=== PATIENT | male | born 1945 | race Caucasian/White ===

== ENCOUNTER 2016-12-28 18:27 | Inpatient (IN) | payer OTHER, BC ==
[~2016-12-28] VITALS: Ht 170.2 cm; Wt 86.3 kg
[~2016-12-28 18:27] MED LIST: ASPIR 8181 M1 PO; METFORMIN HCL1000 M1; NIFEDIPINE ER30 MG PO; PIOGLITAZONE HC45 MG; ZESTRIL20 MG PO
[2016-12-28 18:58] LABS: HEMATOCRIT 41.1 % (38.0-50.0); MCH 29.5 PG (29.0-34.0); MCHC 34.3 G/DL (30.0-36.0); MEAN PLAT.VOLUME 11.5 uM^3 (9.0-12.4); PLATELET COUNT 213 K/uL (156-360); RBC DIS.WIDTH-CV 11.3 % (11.8-14.6); RBC DIS.WIDTH-SD 35.7 % (39-53); RED BLOOD COUNT 4.78 M/uL (4.00-5.50); WHITE BLOOD COUNT 10.5 K/uL (4.1-10.2)
[2016-12-28 19:12] LABS: CHLORIDE 109 mEq/L (99-109); POTASSIUM 4.6 mEq/L (3.7-5.4); SODIUM 139 mEq/L (136-147)
[2016-12-28 19:14] LABS: GLUCOSE 128 mg/dL (70-99)
[2016-12-28 19:15] LABS: ANION GAP 13 MEQ/L (2-14)
[2016-12-28 19:18] LABS: GFR ESTIMATE (CALCULATED) 58 mL/min/
[2016-12-28 19:19] LABS: UREA NITROGEN (BUN) 19 mg/dL (9-23)
[2016-12-28 22:22] LABS: ADD MIUA? YES; BILIRUBIN NEGATIVE; BLOOD NEGATIVE; COLOR YELLOW ((YELLOW)); GLUCOSE (STRIP) 50; KETONES 20; LEUKOCYTES NEGATIVE; NITRITE NEGATIVE; PROTEIN (STRIP) 100; UROBILINOGEN 0.2 MG/DL (0.2-1.0)
[2016-12-28 22:32] LABS: BACTERIA NONE SEEN /HPF; EPITHELIAL CELLS NONE SEEN /HPF; MUCUS TRACE /LPF; RED BLOOD CELLS 0-5 /HPF (0-5); WHITE BLOOD CELLS 0-5 /HPF (0-5)
[2016-12-29 00:48] VITALS: BP 172/81
[2016-12-29 01:30] LABS: POINT-OF-CARE METER ID UU14174225
[2016-12-29 03:35] VITALS: BP 154/80
[2016-12-29 06:16] LABS: HEMATOCRIT 36.3 % (38.0-50.0); MCH 30.9 PG (29.0-34.0); MCHC 35.3 G/DL (30.0-36.0); MCV 87.7 FL (86-99); MEAN PLAT.VOLUME 12.2 uM^3 (9.0-12.4); PLATELET COUNT 175 K/uL (156-360); RBC DIS.WIDTH-CV 11.5 % (11.8-14.6); RBC DIS.WIDTH-SD 36.9 % (39-53); RED BLOOD COUNT 4.14 M/uL (4.00-5.50); WHITE BLOOD COUNT 5.4 K/uL (4.1-10.2)
[2016-12-29 06:45] LABS: ALKALINE PHOSPHATASE 87 IU/L (3-129); ANION GAP 8 MEQ/L (2-14); CHLORIDE 109 MEQ/L (99-109); GFR ESTIMATE (CALCULATED) 58 mL/min/; POTASSIUM 4.4 MEQ/L (3.7-5.4); SAMPLE HEMOLYSIS CHECK 0; SAMPLE ICTERIC CHECK 0; SAMPLE LIPEMIA CHECK 0; SODIUM 139 MEQ/L (136-147); TOTAL BILIRUBIN 0.5 MG/DL (0.0-1.0); UREA NITROGEN (BUN) 20 mg/dL (9-23)
[2016-12-29 06:47] LABS: GLUCOSE 200 mg/dL (70-99)
[2016-12-29 06:49] LABS: HDL CHOLESTEROL 28 MG/DL (Desirable>=40); LDL CHOLESTEROL 103 mg/dL (Desirable<100); NON-HDL CHOLESTEROL 138 mg/dL (Desirable<160); TOTAL CHOLESTEROL 166 mg/dL (Desirable<200); TRIGLYCERIDES 177 MG/DL (Normal: <150)
[2016-12-29 07:03] LABS: Estimated Average Glucose 217 mg/dL (70-123); HEMOGLOBIN A1c (GLYCOHEMOGLOB) 9.2 % HGB (Below 5.7)
[2016-12-29 08:06] VITALS: BP 132/74
[2016-12-29 11:30] VITALS: BP 171/95
[2016-12-29 15:44] VITALS: BP 148/82
[2016-12-29 17:36] LABS: POINT-OF-CARE METER ID UU14174225
[2016-12-29] MEDS ORDERED: METFORMIN HCL1000 MG PO (17:36)
[2016-12-29] MEDS ORDERED: VENLAFAXINE H37.5 MG PO (17:37)
[2016-12-29] MEDS ORDERED: BETAMETHASONE D15 GM TP (17:38)
[2016-12-29] MEDS ORDERED: GLIPIZIDE10 MG PO (17:39)
[2016-12-29] MEDS ORDERED: TOUJEO SOL300 UNIT/1 SC (17:39)
[2016-12-29] MEDS ORDERED: VITAMIN C1000 MG PO (17:40)
[2016-12-29 18:11] LABS: HEMATOCRIT 36.9 % (38.0-50.0); MCV 87.9 FL (86-99)
[2016-12-29 20:01] VITALS: BP 169/86
[2016-12-29 21:27] LABS: POINT-OF-CARE METER ID UU14188625
[2016-12-30 00:03] VITALS: BP 167/95
[2016-12-30 01:21] LABS: HEMATOCRIT 35.2 % (38.0-50.0); MCV 86.7 FL (86-99)
[2016-12-30 03:20] LABS: POINT-OF-CARE METER ID UU14174225
[2016-12-30 03:52] VITALS: BP 180/93
[2016-12-30 07:29] LABS: HEMATOCRIT 35.1 % (38.0-50.0); MCV 86.5 FL (86-99)
[2016-12-30 08:07] LABS: POINT-OF-CARE METER ID UU14188625
[2016-12-30 08:29] VITALS: BP 161/79
[2016-12-30 12:18] VITALS: BP 138/76
[2016-12-30 12:35] LABS: HEMATOCRIT 38.3 % (38.0-50.0); MCV 86.8 FL (86-99)
[2016-12-30] MEDS ORDERED: ATORVASTATIN CA40 MG PO (13:50)
[2016-12-30] MEDS ORDERED: CLOPIDOGREL75 MG PO (13:50)
[2016-12-30] MEDS ORDERED: LEVEMIR FL100 UNIT/1 SC (15:20)
[2016-12-30] MEDS ORDERED: PEPCID20 MG PO (15:22)
[2016-12-30] MEDS ORDERED: NOVOLOG PE100 UNITS/ SC (15:23)
[2016-12-30] MEDS ORDERED: GLUCOTROL XL10 MG PO (15:24)
[2016-12-30] MEDS ORDERED: HEPARIN SO5000 UNIT4 SQ (15:26)
[2016-12-30] MEDS ORDERED: GLUCAGON HCL1 MG IM (15:32)
== END 2016-12-30 15:05 | DRG 66 ==
LOC: EME 18:27 → 5SOUTH 23:31 → EDOF 23:31 → ENRESERV 23:34 → 5SOUTH 12-29 00:47
PROVIDERS: Internal Medicine; Nurse Practitioner Family
DX: I63.9 Cerebral infarction, unspecified (principal); H53.2 Diplopia; H49.00 Third [oculomotor] nerve palsy, unspecified eye; H02.401 Unspecified ptosis of right eyelid; E78.00 Pure hypercholesterolemia, unspecified; I10 Essential (primary) hypertension; I25.10 Atherosclerotic heart disease of native coronary artery without angina pectoris; Z95.5 Presence of coronary angioplasty implant and graft; E78.5 Hyperlipidemia, unspecified; R27.0 Ataxia, unspecified; E11.65 Type 2 diabetes mellitus with hyperglycemia; Z86.73 Personal history of transient ischemic attack (TIA), and cerebral infarction without residual deficits
CPT/HCPCS: 70450; 70551; 71020; 80048; 80053; 80061; 81003; 82948; 83036; 85014; 85018; 85027; 92523 GN; 92610 GN; 93005; 93306; 93880; 99281; 99285; J1644; J1815; J7030

== ENCOUNTER 2016-12-30 14:48 | Inpatient (IN) | payer OTHER, BC ==
[~2016-12-30] VITALS: Ht 175.3 cm; Wt 86.7 kg
[~2016-12-30 14:48] MED LIST changes: +ATORVASTATIN CA40 MG PO; +BETAMETHASONE D15 GM TP; +CLOPIDOGREL75 MG PO; +GLIPIZIDE10 MG PO; +METFORMIN HCL1000 MG PO; +TOUJEO SOL300 UNIT/1 SC; +VENLAFAXINE H37.5 MG PO; +VITAMIN C1000 MG PO
[2016-12-30] MEDS ORDERED: LEVEMIR FL100 UNIT/1 SC (15:20)
[2016-12-30] MEDS ORDERED: PEPCID20 MG PO (15:22)
[2016-12-30] MEDS ORDERED: NOVOLOG PE100 UNITS/ SC (15:23)
[2016-12-30] MEDS ORDERED: GLUCOTROL XL10 MG PO (15:24)
[2016-12-30] MEDS ORDERED: HEPARIN SO5000 UNIT4 SQ (15:26)
[2016-12-30] MEDS ORDERED: GLUCAGON HCL1 MG IM (15:32)
[2016-12-30 15:40] VITALS: BP 184/89
[2016-12-30 16:47] LABS: POINT-OF-CARE METER ID UU13113720
[2016-12-30 21:11] LABS: POINT-OF-CARE METER ID UU13113720
[2016-12-31 00:02] VITALS: BP 164/79
[2016-12-31 04:25] VITALS: BP 154/85
[2016-12-31 05:42] LABS: HEMATOCRIT 34.8 % (38.0-50.0); MCH 29.6 PG (29.0-34.0); MCHC 34.8 G/DL (30.0-36.0); MCV 85.1 FL (86-99); MEAN PLAT.VOLUME 11.9 uM^3 (9.0-12.4); PLATELET COUNT 168 K/uL (156-360); RBC DIS.WIDTH-CV 11.2 % (11.8-14.6); RBC DIS.WIDTH-SD 34.7 % (39-53); RED BLOOD COUNT 4.09 M/uL (4.00-5.50); WHITE BLOOD COUNT 5.3 K/uL (4.1-10.2)
[2016-12-31 06:15] LABS: ALKALINE PHOSPHATASE 86 IU/L (3-129); ANION GAP 9 MEQ/L (2-14); CHLORIDE 109 MEQ/L (99-109); GFR ESTIMATE (CALCULATED) > 59 mL/min/; POTASSIUM 3.9 MEQ/L (3.7-5.4); SAMPLE HEMOLYSIS CHECK 0; SAMPLE ICTERIC CHECK 0; SAMPLE LIPEMIA CHECK 0; SODIUM 141 MEQ/L (136-147); TOTAL BILIRUBIN 0.5 MG/DL (0.0-1.0); UREA NITROGEN (BUN) 17 mg/dL (9-23)
[2016-12-31 06:21] LABS: GLUCOSE 120 mg/dL (70-99)
[2016-12-31 07:00] LABS: POINT-OF-CARE METER ID UU13113720
[2016-12-31 11:35] LABS: POINT-OF-CARE METER ID UU13113712
[2016-12-31 15:36] VITALS: BP 139/83
[2016-12-31 16:33] LABS: POINT-OF-CARE METER ID UU13113712
[2016-12-31 21:23] LABS: POINT-OF-CARE METER ID UU13113712
[2017-01-01 05:37] VITALS: BP 141/74
[2017-01-01 08:13] LABS: POINT-OF-CARE METER ID UU13113712
[2017-01-01 11:36] LABS: POINT-OF-CARE METER ID UU13113712; POINT-OF-CARE USER ID ENVGAF
[2017-01-01 15:39] VITALS: BP 157/76
[2017-01-01 16:52] LABS: POINT-OF-CARE METER ID UU13113720
[2017-01-01 21:10] LABS: POINT-OF-CARE METER ID UU13113720
[2017-01-02 04:22] VITALS: BP 134/67
[2017-01-02 06:36] LABS: POINT-OF-CARE METER ID UU13113712; POINT-OF-CARE USER ID ENVGAF
[2017-01-02 11:06] LABS: POINT-OF-CARE METER ID UU13113712
[2017-01-02 14:59] VITALS: BP 147/77
[2017-01-02 16:26] LABS: POINT-OF-CARE METER ID UU13113712
[2017-01-02 21:50] LABS: POINT-OF-CARE METER ID UU13113712
[2017-01-03 05:00] VITALS: BP 134/64
[2017-01-03 06:48] LABS: POINT-OF-CARE METER ID UU13113720; POINT-OF-CARE USER ID ENVGAF
[2017-01-03 11:44] LABS: POINT-OF-CARE METER ID UU13113712
[2017-01-03 15:26] VITALS: BP 155/86
[2017-01-03 17:11] LABS: POINT-OF-CARE METER ID UU13113720
[2017-01-03 21:19] LABS: POINT-OF-CARE METER ID UU13113720
[2017-01-04 05:35] VITALS: BP 120/75
[2017-01-04 07:20] LABS: POINT-OF-CARE METER ID UU14174215
[2017-01-04 11:47] LABS: POINT-OF-CARE METER ID UU13113720
[2017-01-04 15:29] VITALS: BP 145/74
[2017-01-04 16:42] LABS: POINT-OF-CARE METER ID UU13113720
[2017-01-04 21:03] LABS: POINT-OF-CARE METER ID UU14174215
[2017-01-05 04:55] VITALS: BP 120/67
[2017-01-05 07:01] LABS: POINT-OF-CARE METER ID UU14174215
[2017-01-05 11:25] LABS: POINT-OF-CARE METER ID UU14174215
[2017-01-05 15:35] VITALS: BP 124/63
[2017-01-05 16:31] LABS: POINT-OF-CARE METER ID UU13113720
[2017-01-05 20:29] LABS: POINT-OF-CARE METER ID UU13113720
[2017-01-06 01:33] LABS: C DIFF TOXIN NEGATIVE (NEGATIVE)
[2017-01-06 01:35] LABS: PROBE CHECK PASS; SPECIMEN PROCESSING CONTROL PASS
[2017-01-06 05:04] VITALS: BP 129/71
[2017-01-06 06:54] LABS: POINT-OF-CARE METER ID UU13113720; POINT-OF-CARE USER ID ENVGAF
[2017-01-06 11:36] LABS: POINT-OF-CARE METER ID UU14174215
[2017-01-06 15:53] VITALS: BP 145/81
[2017-01-06 16:37] LABS: POINT-OF-CARE METER ID UU14174215
[2017-01-06 20:40] LABS: POINT-OF-CARE METER ID UU13113720
[2017-01-07 04:50] VITALS: BP 128/63
[2017-01-07 06:51] LABS: POINT-OF-CARE METER ID UU13113720; POINT-OF-CARE USER ID ENVGAF
[2017-01-07 11:54] LABS: POINT-OF-CARE METER ID UU13113720; POINT-OF-CARE USER ID ENVGAF
[2017-01-07 15:54] VITALS: BP 124/69
[2017-01-07 16:39] LABS: POINT-OF-CARE METER ID UU13113720
[2017-01-07 21:16] LABS: POINT-OF-CARE METER ID UU14174215
[2017-01-08 05:42] VITALS: BP 128/60
[2017-01-08 07:26] LABS: POINT-OF-CARE METER ID UU13113720; POINT-OF-CARE USER ID AHSSSJB31
[2017-01-08 11:38] LABS: POINT-OF-CARE METER ID UU13113720; POINT-OF-CARE USER ID AHSSSJB31
[2017-01-08 15:13] VITALS: BP 148/72
[2017-01-08 16:32] LABS: POINT-OF-CARE METER ID UU14174215
[2017-01-08 21:19] LABS: POINT-OF-CARE METER ID UU14174215
[2017-01-09 05:31] VITALS: BP 139/65
[2017-01-09 07:07] LABS: POINT-OF-CARE METER ID UU13113720; POINT-OF-CARE USER ID AHSSSJB31
[2017-01-09 12:02] LABS: POINT-OF-CARE METER ID UU13113720; POINT-OF-CARE USER ID AHSSSJB31
[2017-01-09 15:58] VITALS: BP 134/76
[2017-01-09 16:37] LABS: POINT-OF-CARE METER ID UU14174215
[2017-01-09 21:09] LABS: POINT-OF-CARE METER ID UU14174215
[2017-01-10 04:58] VITALS: BP 128/63
[2017-01-10 06:59] LABS: POINT-OF-CARE METER ID UU13113720; POINT-OF-CARE USER ID ENVGAF
[2017-01-10 11:01] LABS: POINT-OF-CARE METER ID UU13113720
[2017-01-10 15:05] VITALS: BP 138/73
[2017-01-10 16:38] LABS: POINT-OF-CARE METER ID UU14174215
[2017-01-10 20:44] LABS: POINT-OF-CARE METER ID UU13113720
[2017-01-11 06:11] VITALS: BP 124/70
[2017-01-11 07:11] LABS: POINT-OF-CARE METER ID UU13113720; POINT-OF-CARE USER ID AHSSSJB31
[2017-01-11 11:12] LABS: POINT-OF-CARE METER ID UU14174215; POINT-OF-CARE USER ID AHSSSJB31
[2017-01-11 15:32] VITALS: BP 144/73
[2017-01-11 16:34] LABS: POINT-OF-CARE METER ID UU14174215
[2017-01-11 21:03] LABS: POINT-OF-CARE METER ID UU13113720
[2017-01-12 05:03] VITALS: BP 157/75
[2017-01-12 06:47] LABS: POINT-OF-CARE METER ID UU14174215; POINT-OF-CARE USER ID ENVGAF
[2017-01-12 11:21] LABS: POINT-OF-CARE METER ID UU14174215; POINT-OF-CARE USER ID ENVGAF
[2017-01-12 16:00] VITALS: BP 158/82
[2017-01-12 16:18] LABS: POINT-OF-CARE METER ID UU14174215
[2017-01-12 21:17] LABS: POINT-OF-CARE METER ID UU13113720
[2017-01-13 04:06] VITALS: BP 142/59
[2017-01-13 07:14] LABS: POINT-OF-CARE METER ID UU14174215
[2017-01-13 11:39] LABS: POINT-OF-CARE METER ID UU14174215
[2017-01-13 15:21] VITALS: BP 157/72
[2017-01-13 16:43] LABS: POINT-OF-CARE METER ID UU13113720
[2017-01-13 21:26] LABS: POINT-OF-CARE METER ID UU14174215
[2017-01-14 04:50] VITALS: BP 136/66
[2017-01-14 06:57] LABS: POINT-OF-CARE METER ID UU13113720
[2017-01-14 11:20] LABS: POINT-OF-CARE METER ID UU14174215
[2017-01-14 15:10] VITALS: BP 151/77
[2017-01-14 16:29] LABS: POINT-OF-CARE METER ID UU14174215
[2017-01-14 21:05] LABS: POINT-OF-CARE METER ID UU13113720
[2017-01-15 05:35] VITALS: BP 147/73
[2017-01-15 06:58] LABS: POINT-OF-CARE METER ID UU13113720; POINT-OF-CARE USER ID ENVGAF
[2017-01-15 11:03] LABS: POINT-OF-CARE METER ID UU14174215
[2017-01-15 15:06] VITALS: BP 143/67
[2017-01-15 16:16] LABS: POINT-OF-CARE METER ID UU14174215
[2017-01-15 21:14] LABS: POINT-OF-CARE METER ID UU14174215
[2017-01-16 04:56] VITALS: BP 121/63
[2017-01-16 06:44] LABS: POINT-OF-CARE METER ID UU13113720; POINT-OF-CARE USER ID ENVGAF
[2017-01-16 11:10] LABS: POINT-OF-CARE METER ID UU14174215
[2017-01-16 15:05] VITALS: BP 159/77
[2017-01-16 16:05] LABS: POINT-OF-CARE METER ID UU14174215
[2017-01-16 21:06] LABS: POINT-OF-CARE METER ID UU14174215
[2017-01-17 06:25] LABS: HEMATOCRIT 34.2 % (38.0-50.0); MCV 86.1 FL (86-99); MEAN PLAT.VOLUME 11.3 uM^3 (9.0-12.4); PLATELET COUNT 201 K/uL (156-360); RBC DIS.WIDTH-CV 11.8 % (11.8-14.6); RBC DIS.WIDTH-SD 36.8 % (39-53); RED BLOOD COUNT 3.97 M/uL (4.00-5.50); WHITE BLOOD COUNT 6.6 K/uL (4.1-10.2)
[2017-01-17 06:27] VITALS: BP 151/70
[2017-01-17 06:50] LABS: ALKALINE PHOSPHATASE 88 IU/L (3-129); ANION GAP 8 MEQ/L (2-14); CHLORIDE 110 MEQ/L (99-109); GFR ESTIMATE (CALCULATED) > 59 mL/min/; GLUCOSE 128 mg/dL (70-99); POTASSIUM 4.1 MEQ/L (3.7-5.4); SAMPLE HEMOLYSIS CHECK 0; SAMPLE ICTERIC CHECK 0; SAMPLE LIPEMIA CHECK 0; SODIUM 140 MEQ/L (136-147); TOTAL BILIRUBIN 0.4 MG/DL (0.0-1.0); UREA NITROGEN (BUN) 17 mg/dL (9-23)
[2017-01-17 07:17] LABS: POINT-OF-CARE METER ID UU14174215
[2017-01-17] MEDS ORDERED: ATORVASTATIN CA40 MG PO (11:14)
[2017-01-17] MEDS ORDERED: GLIPIZIDE10 MG PO (11:14)
[2017-01-17] MEDS ORDERED: NIFEDIPINE ER30 MG PO (11:14)
[2017-01-17] MEDS ORDERED: METFORMIN HCL1000 MG PO (11:14)
[2017-01-17] MEDS ORDERED: ASPIR 8181 M1 PO (11:14)
[2017-01-17] MEDS ORDERED: ZESTRIL20 MG PO (11:14)
[2017-01-17] MEDS ORDERED: ALPRAZOLAM0.25 M2 PO (11:14)
[2017-01-17] MEDS ORDERED: CLOPIDOGREL75 MG PO (11:14)
[2017-01-17 11:27] LABS: POINT-OF-CARE METER ID UU14174215
[2017-01-17 15:12] VITALS: BP 134/79
[2017-01-17 16:30] LABS: POINT-OF-CARE METER ID UU13113720
[2017-01-17 21:27] LABS: POINT-OF-CARE METER ID UU14174215
[2017-01-18 05:49] VITALS: BP 137/74
[2017-01-18 07:29] LABS: POINT-OF-CARE METER ID UU13113720
[2017-01-18 11:28] LABS: POINT-OF-CARE METER ID UU13113720; POINT-OF-CARE USER ID AHSSSJB31
== END 2017-01-18 12:50 | DRG 57 ==
LOC: DELPENDDIS → 3WEST 14:48 → ENPENDDIS 01-19
PROVIDERS: Physical Medicine & Rehabilitation Pain Medicine
PROC: F07M0ZZ Range of Motion and Joint Mobility Treatment of Musculoskeletal System - Whole Body (ICD-10-PCS; principal; 2016-12-30)
DX: I69.393 Ataxia following cerebral infarction (principal); H53.2 Diplopia; H49.00 Third [oculomotor] nerve palsy, unspecified eye; R13.10 Dysphagia, unspecified; I08.1 Rheumatic disorders of both mitral and tricuspid valves; I27.2 Other secondary pulmonary hypertension; R26.9 Unspecified abnormalities of gait and mobility; D64.9 Anemia, unspecified; D72.829 Elevated white blood cell count, unspecified; E11.9 Type 2 diabetes mellitus without complications; I10 Essential (primary) hypertension; E78.5 Hyperlipidemia, unspecified; H92.02 Otalgia, left ear; I25.10 Atherosclerotic heart disease of native coronary artery without angina pectoris; G47.00 Insomnia, unspecified; H02.409 Unspecified ptosis of unspecified eyelid; F41.9 Anxiety disorder, unspecified; F32.9 Major depressive disorder, single episode, unspecified; Z95.5 Presence of coronary angioplasty implant and graft
CPT/HCPCS: 80053; 82948; 85027; 87493; 96125 GN; 97110 GO; 97112 GP; 97530 GP; 97532 GN; J1644; J1815

== ENCOUNTER 2017-02-15 16:34 | Emergency (ER) | payer OTHER, BC ==
[~2017-02-15] VITALS: Ht 175.3 cm; Wt 77.7 kg
[~2017-02-15 16:34] MED LIST changes: +ALPRAZOLAM0.25 M2 PO; +GLUCAGON HCL1 MG IM; +GLUCOTROL XL10 MG PO; +HEPARIN SO5000 UNIT4 SQ; +LEVEMIR FL100 UNIT/1 SC; +NOVOLOG PE100 UNITS/ SC; +PEPCID20 MG PO
[2017-02-15 17:03] LABS: HEMATOCRIT 35.8 % (38.0-50.0); MCHC 35.2 G/DL (30.0-36.0); MEAN PLAT.VOLUME 11.9 uM^3 (9.0-12.4); PLATELET COUNT 200 K/uL (156-360); RBC DIS.WIDTH-SD 38.8 % (39-53); RED BLOOD COUNT 4.07 M/uL (4.00-5.50); WHITE BLOOD COUNT 7.5 K/uL (4.1-10.2)
[2017-02-15 17:08] LABS: CHLORIDE 112 mEq/L (99-109); POTASSIUM 4.6 mEq/L (3.7-5.4); SODIUM 139 mEq/L (136-147)
[2017-02-15 17:10] LABS: GLUCOSE 183 mg/dL (70-99)
[2017-02-15 17:11] LABS: ANION GAP 9 MEQ/L (2-14)
[2017-02-15 17:14] LABS: GFR ESTIMATE (CALCULATED) 46 mL/min/
[2017-02-15 17:15] LABS: UREA NITROGEN (BUN) 31 mg/dL (9-23)
[2017-02-15 18:31] VITALS: BP 135/80
== END 2017-02-15 18:30 | disposition home or self-care (01) ==
LOC: EME 16:34
PROVIDERS: Emergency Medicine
DX: G45.9 Transient cerebral ischemic attack, unspecified (principal); I10 Essential (primary) hypertension; E11.9 Type 2 diabetes mellitus without complications; E78.5 Hyperlipidemia, unspecified; I25.2 Old myocardial infarction; Z95.5 Presence of coronary angioplasty implant and graft; F32.9 Major depressive disorder, single episode, unspecified; F41.9 Anxiety disorder, unspecified; Z79.4 Long term (current) use of insulin
CPT/HCPCS: 70450; 71020; 80048; 85027; 93005; 99281; 99285